=== PATIENT | female | born 1960 | race Two or more races ===

== ENCOUNTER 2024-10-05 07:05 | Inpatient (IN) | payer MEDICAID ==
[2024-10-05] VITALS (15 sets, daily range): BP systolic 100–115; BP diastolic 63–89; PULSE 77–106; RESP 12–20; TEMP 97.8–98.4; O2SAT 80–98
[~2024-10-05] VITALS: Ht 165.1 cm; Wt 101.3 kg
[~2024-10-05 07:05] MED LIST: ACET1CAP14 PO; ACYC400T16 PO; ASPITAB37 PO; ATOR40TA52 PO; DICL1.3P TOP; ESTR1TAB5 PO; FAMO20TA10 PO; GABA-339 PO; GLYC5INJ IJ; HYDR-3682 PO; LAMO200T2 PO; LORA-622 PO; METO-159 PO; MOME1AER3 INH; MONT-8 PO; NAPR220C PO; OXYB5SYP4 PO; PANT40TA2 PO; PRAM0.373 PO; PROG100C23 PO; SEMA2.4I SC; TRAZ-228 PO; VENL225T20 PO; [UNRECOGNIZED DRUG - CODE] SC
[2024-10-05] MEDS: CELECOXIB 100 MG CAP ONE (07:36)
[2024-10-05] MEDS: ACETAMINOPHEN IV 100 ML IV ONE (07:36)
[2024-10-05] MEDS: PREGABALIN CAPSULE 75 MG CAP ONE (08:07)
[2024-10-05] MEDS: ACETAMINOPHEN IV 1000 MG/100ML (10MG/ML) IV ONE (09:25)
[2024-10-05] MEDS: PREGABALIN CAPSULE 75 MG CAP PO ONE (09:25)
[2024-10-05] MEDS: CELECOXIB 100 MG CAP PO ONE (09:25)
[2024-10-05] MEDS: TRANEXAMIC ACID 20 ML ONE (09:45)
[2024-10-05] MEDS ORDERED: fentaNYL CITRATE 100 MCG/2 ML VL ONE (09:45)
[2024-10-05] MEDS: CEFEPIME 1GM/50ML 50 ML IV ONE (09:45)
[2024-10-05] MEDS: ceFAZolin 2 GM/D5W50ml 50 ML IV ONE (09:45)
[2024-10-05] MEDS ORDERED: ONDANSETRON HCL 4 MG/2 ML VIAL ONE (09:46)
[2024-10-05] MEDS ORDERED: MIDAZOLAM HCL 2MG/2ML 2ml VIAL (1mg/ml) ONE (09:46)
[2024-10-05] MEDS ORDERED: METOCLOPRAMIDE HCL 5MG/ml INJ 2ml VIAL ONE (09:46)
[2024-10-05] MEDS: BUPIVACAINE 0.25% INJ 50ML VIAL ONE ×2 (09:47→10:11)
[2024-10-05] MEDS ORDERED: PROPOFOL 10 MG/ML 20 ML IV ONE (09:48)
[2024-10-05] MEDS ORDERED: PROGESTERONE PO SCH (10:00)
[2024-10-05] MEDS ORDERED: PATIENTS OWN MEDICATION (Metoprolol Tartrate 1 TAB) PO SCH (10:00)
[2024-10-05] MEDS ORDERED: PATIENTS OWN MEDICATION (Lamotrigine (Lamictal) 1 TAB) PO SCH (10:00)
[2024-10-05] MEDS ORDERED: PATIENTS OWN MEDICATION (Hydroxyzine Hcl 1 TAB) PO SCH (10:00)
[2024-10-05] MEDS ORDERED: PRAMIPEXOLE DIHYDROCHLORIDE 0.5 MG PO SCH (10:00)
[2024-10-05] MEDS ORDERED: NITROGLYCERIN 0.4 MG SL TAB SL PRN (10:00)
[2024-10-05] MEDS ORDERED: FAMOTIDINE 20 MG TAB PO SCH (10:00)
[2024-10-05] MEDS ORDERED: PANTOPRAZOLE 40 MG TAB PO SCH (10:00)
[2024-10-05] MEDS ORDERED: VENLAFAXINE HCL 225 MG PO SCH (10:00)
[2024-10-05] MEDS ORDERED: ONDANSETRON HCL 4 MG/2 ML VIAL IV PRN (10:00)
[2024-10-05] MEDS ORDERED: CEFEPIME 1GM/50ML 50 ML IV SCH (10:00)
[2024-10-05] MEDS ORDERED: Mometasone Furoate-Formoterol (Dulera) IN SCH (10:00)
[2024-10-05] MEDS ORDERED: MORPHINE SULFATE INJ 2 MG/ml SYRG IV PRN (10:00)
[2024-10-05] MEDS ORDERED: PATIENTS OWN MEDICATION (Atorvastatin Calcium 1 TAB) PO SCH (10:00)
[2024-10-05] MEDS ORDERED: PATIENTS OWN MEDICATION (Gabapentin 1 TAB) PO SCH (10:00)
[2024-10-05] MEDS ORDERED: DICLOFENAC EPOLAMINE TOP SCH (10:00)
[2024-10-05] MEDS ORDERED: ceFAZolin 1GM/50ML 50 ML IV SCH (10:00)
[2024-10-05] MEDS ORDERED: OXYBUTYNIN CHLORIDE 5 MG/5 ML PO SCH (10:00)
--- NOTE | 2024-10-05 10:00 | DVHOP2 ---
Operative Report - 2 Report Details Date: 10/05/24 Preop Diagnosis: Right knee osteoarthritis Postop Diagnosis: Right knee osteoarthritis Surgeon: Sheldon Helton MD Second Grade Teacher: Alex JESUS Anesthesiologist: Navneet HOPKINS Anesthesia: General, Regional Implant: [employer] Size 5 porous CR size 4 tibia size 9 UHMWE 29 mm patella Consent: The patient was informed of the risks and benefits of the procedure. These inclu de but are not limited to complications of anesthesia, postoperative infection, incomplete relief of symptoms, recurrence of symptoms, damage to blood vessels, nerves and tendons, deep venous thrombosis, pulmonary embolism and possible need for repeat surgery in the future. Estimated Blood Loss: 50 cc Name of Procedure Performed Right total knee arthroplasty using computer navigation Procedure Details Procedure Details: FINDINGS: Extensive degenerative disease with grade IV changes INDICATION: This patient has failed non-operative treatments for knee arthritis and is now indicated for a total knee replacement. Preoperatively in the waiting area as well as in the office, I had a long discussion with the patient regarding the plan, the expected outcome, the risks, benefits, and alternatives of surgery. The risks include, but are not limited to, infection (which may require future surgery and removal of implants) , bleeding (which may require a transfusion), damage to nerves, arteries, veins, tendons, muscles and other adjacent structures. Also discussed the possibilities of intraoperative fractures, implant loosening, heterotopic bone formation, and revision for variety of reasons, and medical complications etc. This was discussed at length and consent has been obtained. DESCRIPTION OF PROCEDURE: In the preoperative holding area, the consent was reviewed and the appropriate extremity was verified by the patient and marked wi th my initials. The patient was then transferred to the operating theatre. Appropriate anesthesia was induced. All bony prominences were well padded. A time out was performed verifying the side and site of surgery according to standard protocol. Preoperative antibiotics were given 10 minutes prior to tourniquet inflation. Tranexamic acid was given. A well padded thigh tourniquet was applied. The extremity was then prepped and draped in the usual sterile fashion. The extremity was exsanguinated and the tourniquet was inflated. We then made a mid-line incision, which we continued to the underlying capsular tissue. We performed a medial parapatellar arthrotomy. We periosteally exposed the proximal tibia, excised the anterior fat pad and synovium from the distal aspect of the femur. We then subluxed the patella and brought the knee up into flexion. The lateral meniscus, ACL, and PCL were released. We used the appropriate guide with attached computer navigation to secure the distal femoral cutting block to the femur with pins and completed the distal femoral cut in 0 degrees to the mechanical axis with an oscillating saw. We removed the distal femoral cutting block and turned our attention to the tibia. We used the extramedullary tibial alignment guide with computer navigation to secure the proximal tibial cutting block to the tibia with pins, setting it for a 2 mm cut from the more involved side, and completed the proximal tibial cut. We then used the spacer block and alignment laura to check the varus-valgus angle of our cuts and the extension gap. The knee was then balanced in extension to varus/valgus stress. We marked our femoral anatomy, including Garza's line and the epicondylar axis. Using that as a rotational guide, we used the sizing guide to size our femur properly, using a stylus to ensure there would be no notching. We then used the AP cutting guide to make our anterior and posterior cuts and chamfer cuts with an oscillating saw. We again checked the flexion and extension gaps and coronal balancing. Next, we sized our tibia and secured a baseplate with appropriate rotation with pins. We placed a trial femur in position and completed preparation of the notch with reamers and box osteotome and placed a trial notch in position. We used trials to choose our liner size and then placed the liner in place and reduced the knee. We used an oscillating saw to resurfac e the patella, and used a guide to choose the button size and completed patella preparation with the drill. We then placed a trial button in place. At this point, we checked our seven parameters: 1) Limb alignment 2) Extension 3) Flexion against gravity 4) Flexion stability 5) Varus-valgus balancing 6) Component rotation 7) Patella tracking We were satisfied with these and removed all trials with the exception of the baseplate. We completed preparation of the tibia with the appropriate reamer and keel impactor and then removed the baseplate. We placed a bone plug in the distal femur and then irrigated and dried all bony surfaces and injected our pain cocktail. impacted our tibial, femoral and patellar components into position. We impacted our liner and reduced the knee and held it with axial loading. We released the tourniquet and achieved hemostasis where necessary. A dilute betadine solution (17.5mL in 500mL saline) was used to wash the joint and left to sit for 3 minutes. This was then irrigated out with copious amounts of pulse lavage. We sprinkled 1g vancomycin powder below the fascia and 1g above the fasc ia. We copiously irrigated the knee. We re-checked our seven parameters. We closed our capsular incision with a PDS style suture. We irrigated further. We closed the subcutaneous tissue with Vicryl suture and re-approximated the skin with venecia. We verified all lower extremity compartments were soft and compressible and that we had intact distal pulses. We wrapped the extremity in sterile Webril and bassem bandage. The patient was transferred to the recovery room in stable condition. Condition Good Disposition Still a Patient SHELDON HELTON MD Oct 05, 2024 10:00
[2024-10-05] MEDS: KETOROLAC TROMETH 30 MG/ML 1ML VIAL ONE (10:11)
[2024-10-05] MEDS: MORPHINE SULF PF 5 MG/10 ML VIAL ONE (10:11)
[2024-10-05] MEDS: VANCOMYCIN HCL 1000 MG VL ONE (10:11)
[2024-10-05] MEDS ORDERED: NALOXONE HCL 0.4 MG/ML VIAL IV PRN (12:00)
[2024-10-05] MEDS ORDERED: diphenhdrAMINE HCL 50 MG/1 ML VL IV PRN (12:00)
[2024-10-05] MEDS ORDERED: HYDROmorphone HCL 2 MG/ML VL/or syr IV PRN (12:00)
[2024-10-05] MEDS: MIDAZOLAM HCL 2MG/2ML 2ml VIAL (1mg/ml) ONE ×2 (12:06→16:11)
[2024-10-05] MEDS: MIDAZOLAM HCL 2MG/2ML 2ml VIAL (1mg/ml) IV PRN ×2 (12:06→16:15)
--- NOTE | 2024-10-05 12:56 | DVHHP2 ---
Review of Systems Allergies: Coded Allergies: Hydrocodone (Unverified Allergy, Unknown, SOB, 10/01/24) Sulfa Antibiotics (Unverified Adverse Reaction, Intermediate, lip swelling , 10/01/24) Norfloxacin (Unverified Adverse Reaction, Unknown, unknown, 10/01/24) Medications Current Medications Medications Dose Ordered Sig/Mercy Route Start Time Stop Time Status Last Admin Dose Admin Famotidine 20 mg DAILY PO 10/05/24 10:00 Loratadine 10 mg DAILY PO 10/05/24 10:00 Montelukast Sodium 10 mg DAILY PO 10/05/24 10:00 Pantoprazole Sodium 40 mg DAILY PO 10/05/24 10:00 Patient Own Medication 1 tab DAILY PO 10/05/24 10:00 UNV Patient Own Medication 1 patch BID TOP 10/05/24 10:00 Patient Own Medication 1 tab BID PO 10/05/24 10:00 UNV Patient Own Medication 1 tab BID PO 10/05/24 10:00 UNV Patient Own Medication 1 tab BID PO 10/05/24 10:00 UNV Patient Own Medication 1 tab BID PO 10/05/24 10:00 UNV Patient Own Medication 2 puff BID IN 10/05/24 10:00 Patient Own Medication 10 mg DAILY PO 10/05/24 10:00 Patient Own Medication 0.5 mg DAILY PO 10/05/24 10:00 UNV Patient Own Medication 2.5 mg DAILY PO 10/05/24 10:00 Patient Own Medication 100 mg PRN PO 10/05/24 10:00 UNV Patient Own Medication 1 tab DAILY PO 10/05/24 10:00 Cefepime HCl 50 ml @ 12.5 mls/hr DAILY IV 10/05/24 10:00 Lactated Ringer's 1,000 ml @ 100 mls/hr Q10H IV 10/05/24 10:00 Sodium Chloride 10 ml Q8HR IV 10/05/24 14:00 Cefazolin Sodium 50 ml @ 50 mls/hr Q6H IV 10/05/24 10:00 10/05/24 22:59 Oxycodone/ Acetaminophen 1 tab Q4HP PRN PO 10/05/24 10:00 Hydromorphone HCl 1 mg Q2HP PRN IV 10/05/24 10:00 Hold Ondansetron HCl 4 mg Q6HP PRN IV 10/05/24 10:00 Docusate Sodium 100 mg Q12HR PO 10/05/24 10:00 Nitroglycerin 0.4 mg Q5MINP PRN SL 10/05/24 10:00 Morphine Sulfate 2 mg Q30M PRN IV 10/05/24 10:00 Hold Aspirin 81 mg BID PO 10/05/24 10:00 Atorvastatin Calcium 40 mg HS PO 10/05/24 22:00 Gabapentin 600 mg BID PO 10/05/24 22:00 Hydroxyzine Pamoate 25 mg BID PO 10/05/24 22:00 Lamotrigine 200 mg BID PO 10/05/24 22:00 Metoprolol Tartrate 100 mg BID PO 10/05/24 22:00 Pramipexole Dihydrochloride 0.5 mg DAILY PO 10/06/24 10:00 Trazodone HCl 100 mg QPM PRN PO 10/05/24 11:30 Diphenhydramine HCl 25 mg Q4HP PRN IV 10/05/24 12:00 Ondansetron HCl 4 mg Q4HP PRN IV 10/05/24 12:00 Cyclobenzaprine HCl 5 mg TID PO 10/05/24 14:00 Midazolam HCl 1 mg [id number] PRN IV 10/05/24 12:00 10/05/24 14:00 UNV Exam Vital Signs Vital Signs Date Time Temp Pulse Resp B/P (MAP) Pulse Ox O2 Delivery O2 Flow Rate FiO2 10/05/24 07:26 97.4 84 20 126/72 (90) 94 97.4 Labs/Xrays Labs Test 10/05/24 11:50 Range/Units POC Glucose 101 70-106 mg/dl SEPSIS Sepsis Screen Physician Orders Famotidine Tablet (Pepcid Tablet) (10/05/24 10:00) Loratadine Tablet (Claritin Tablet) (10/05/24 10:00) Montelukast Tablet (Singulair Tablet) (10/05/24 10:00) Pantoprazole Tablet (Protonix Tablet) (10/05/24 10:00) (Nf) Diclofenac Epolamine (Flector) (10/05/24 10:00) (Nf) Mometasone Furoate-Formoterol (Dule (10/05/24 10:00) (Nf) Oxybutynin Chloride (10/05/24 10:00) (Nf) Progesterone Micronized (Progestero (10/05/24 10:00) (Nf) Venlafaxine Hcl (Venlafaxine Hcl Er (10/05/24 10:00) Cefepime 1gm/ 50ml (Maxipime 1gm/50ml) (10/05/24 10:00) Patient Condition Stable (10/05/24 09:55) R Knee 3v Xray (10/05/24 11:30) Hemoglobin & Hematocrit (10/06/24 07:00) Hemoglobin & Hematocrit (10/07/24 07:00) Hemoglobin & Hematocrit (10/08/24 07:00) Change Dressing (10/05/24 09:55) Vital Signs .PER UNIT PROTOCOL (10/05/24:55) Weight-Bearing Restrictions (10/05/24 09:55) Lactated Ringer's (10/05/24 10:00) Sodium Chloride Lock (Saline Lock Ns) (10/05/24 14:00) Cefazolin 1gm/50ml (Ancef) (10/05/24 10:00) Oxycodone W/ Acet 5/325mg Tab (Percocet (10/05/24 10:00) Hydromorphone Injection (Dilaudid Inject (10/05/24 10:00) Ondansetron Hcl (Zofran) (10/05/24 10:00) Docusate Sodium Capsule (Colace Capsule) (10/05/24 10:00) 2 Gm Sodium Diet (10/05/24 Lunch) CPM (10/05/24 09:55) Pt Request For Service (10/05/24 09:55) Comprehensive Metabolic Panel (10/06/24 04:00) Call/Page Hospitalist/Atten Fo (10/05/24 09:55) Cpm Machine To Operative Leg (10/05/24 09:55) Incentive Spirometry (10/05/24 09:55) Nitroglycerin Sublingual (Ntrostat Subli (10/05/24 10:00) Morphine Sulfate Injection (10/05/24 10:00) Stat Ekg For Chest Pain (10/05/24 09:55) Notify Of Changes From Base (10/05/24 09:55) Fingernail Technician For 24 Hours (10/05/24 09:55) Emergency Dysrhythmia Protocol (10/05/24 09:55) Rhythm Strips Once Every Shift (10/05/24 09:55) Oxygen By Nasal Cannula (10/05/24 09:55) Apply Ice To Affected Area (10/05/24 09:55) * Hospitalist Consult (10/05/24 ) Aspirin Tablet (10/05/24 10:00) Atorvastatin (Lipitor) (10/05/24 22:00) Gabapentin Capsule (Neurontin Capsule) (10/05/24 22:00) Hydroxyzine Oral (Vistaril Oral) (10/05/24 22:00) Lamotrigine Tablet (Lamictal Tablet) (10/05/24 22:00) Metoprolol Tartrate Tablet (Lopressor Ta (10/05/24 22:00) Pramipexole Tablet (Mirapex Tablet) (10/06/24 10:00) Trazodone Hcl (Desyrel) (10/05/24 11:30) Pain Medication As Ordered (10/05/24 11:47) Diphenhdramine Injection (Benadryl Injec (10/05/24 12:00) Ondansetron Hcl (Zofran) (10/05/24 12:00) Received Epi/Spinal Morphine (10/05/24 11:47) Cyclobenzaprine Tablet (Flexeril Tablet) (10/05/24 14:00) * Asset Card Clerk Consult (10/05/24 ) Admit (10/05/24 12:30) Communication Order (10/05/24 12:31) Midazolam Injection (Versed Injection) (10/05/24 12:00) Vital Signs Date Time Temp Pulse Resp B/P (MAP) Pulse Ox O2 Delivery O2 Flow Rate FiO2 10/05/24 07:26 97.4 84 20 126/72 90 94 97.4 Medications Medications Dose Ordered Sig/Mercy Route Start Time Stop Time Status Last Admin Dose Admin Acetaminophen 1,000 mg ONCE ONCE IV 10/05/24 07:30 10/05/24 08:22 DC 10/05/24 09:25 1,000 MG Bupivacaine HCl 50 ml STK-MED ONCE .ROUTE 10/05/24 09:37 10/05/24 09:34 DC 10/05/24 10:11 40 ML Cefazolin Sodium/ Dextrose 50 ml @ ud STK-MED ONCE IV 10/05/24 09:30 10/05/24 09:27 DC 10/05/24 09:45 Cefepime HCl 50 ml @ ud STK-MED ONCE IV 10/05/24 09:37 10/05/24 09:34 DC 10/05/24 09:45 Celecoxib 400 mg ONCE ONCE PO 10/05/24 07:30 10/05/24 08:22 DC 10/05/24 09:25 400 MG Ketorolac Tromethamine 30 mg STK-MED ONCE .ROUTE 10/05/24 09:43 10/05/24 09:40 DC 10/05/24 10:11 30 MG Morphine Sulfate 5 mg STK-MED ONCE .ROUTE 10/05/24 09:45 10/05/24 09:42 DC 10/05/24 10:11 5 MG Pregabalin 300 mg ONCE ONCE PO 10/05/24 07:30 10/05/24 08:22 DC 10/05/24 09:25 300 MG Tranexamic Acid 20 ml @ ud STK-MED ONCE .ROUTE 10/05/24 09:37 10/05/24 09:34 DC 10/05/24 09:45 Vancomycin HCl 2,000 mg STK-MED ONCE .ROUTE 10/05/24 09:36 10/05/24 09:33 DC 10/05/24 10:11 2,000 MG Assessment/Plan Assessment/Plan see dictated note Plan discussed with: Patient Date of Service: Oct 05, 2024 Billing Provider: HIREN SALDAÑA MD Common Visit Codes: [id number] INP/OBS CARE (HIGH) HIREN SALDAÑA MD Oct 05, 2024 12:56
[2024-10-05] MEDS ORDERED: DEXTROSE (50%) 50ML SYRG IV PRN (13:00)
[2024-10-05] MEDS: LACTATED RINGER'S 1,000 ML IV SCH (13:01)
--- NOTE | 2024-10-05 13:13 | DVHHP ---
HISTORY OF PRESENT ILLNESS: The patient is a 64-year-old lady who was admitted after she underwent surgery on the right knee for DJD of the knee. The patient at this time complains of restless legs with significant jerking of lower extremities. No chest pain, no shortness of breath, no nausea or vomiting. REVIEW OF SYSTEMS: Review of rest of the systems is currently negative. PAST MEDICAL HISTORY: Significant for restless leg syndrome, asthma/COPD, depression, and hypertension. MEDICATIONS: Include metoprolol, Dulera, Singulair, oxybutynin, Protonix, pramipexole, Lipitor, gabapentin, and Naprosyn. ALLERGIES: TO DIAZEPAM, HYDROCODONE, NORFLOXACIN, AND SULFA. SOCIAL HISTORY: Denies smoking or alcohol. Lives alone. FAMILY HISTORY: Negative. PHYSICAL EXAMINATION: GENERAL: The patient is awake and alert. VITAL SIGNS: Temperature of 97.4, pulse 84 per minute, blood pressure 126/72. SHEENT: Unremarkable. NECK: There is no JVD, no pedal edema. LUNGS: Equal bilaterally. No added sounds. CARDIOVASCULAR: S1, S2 is regular. There are no murmurs. ABDOMEN: Soft. There is no organomegaly. NEUROLOGIC: The patient has jerking movements of lower extremities. MUSCULOSKELETAL: The right knee is currently in a dressing. ASSESSMENT AND PLAN: * Restless legs syndrome for which the patient will continue on her home medications. * Obesity. * Hypertension. * Asthma. * Depression. * Hyperlipidemia. * Diabetes Mellitus. * Status post right knee surgery for DJD of the knee for which she will receive physical therapy and pain medications. MD ADRIÁN Noe/MONICA TID: [id number] RECEIPT: [id number]
[2024-10-05] MEDS: ONDANSETRON HCL 4 MG/2 ML VIAL IV PRN (13:18)
[2024-10-05] MEDS: DOCUSATE SOD 100 MG CAP PO SCH (13:29)
[2024-10-05] MEDS: CYCLOBENZAPRINE HCL 10 MG TAB PO SCH (13:29)
[2024-10-05] MEDS: LORATADINE 10 MG TAB PO SCH (13:30)
[2024-10-05] MEDS: MONTELUKAST SODIUM 10 MG TAB PO SCH (13:30)
[2024-10-05] MEDS: PANTOPRAZOLE 40 MG TAB PO ONE (13:30)
[2024-10-05] MEDS: SODIUM CHLOR 0.9% PF (SALINE LOCK) 10ML VIAL/SYR IV SCH (14:20)
--- NOTE | 2024-10-05 14:22 | DVH ---
EXAM: XY R KNEE 3V XRAY CLINICAL INDICATION: S/P SURGERY TECHNIQUE: XY R KNEE 3V XRAY Comparison: None FINDINGS/IMPRESSION: Right total knee arthroplasty. Anatomic alignment. Expected postsurgical changes.
[2024-10-05] MEDS: ceFAZolin 1GM/50ML 50 ML IV SCH (15:30)
[2024-10-05] MEDS ORDERED: ALBUTEROL SULF 2.5 MG/0.5ML(0.5%) NEB SOLN NEB PRN (16:30)
[2024-10-05] MEDS ORDERED: IPRATROPIUM BROM 0.5 MG/2.5ML INH SOL NEB PRN ×2 (16:30→16:45)
[2024-10-05] MEDS: InsuLIN REG 1unit/0.01ml Soln (100units/ml) SC SCH (17:00)
[2024-10-05] MEDS: ACCU-CHEK COMFORT CURVE STRIP VI SCH (17:00)
[2024-10-05] MEDS: FAMOTIDINE 20 MG TAB PO SCH (18:00)
[2024-10-05] MEDS: LORazepam 0.5 MG TAB PO PRN (21:33)
[2024-10-05] MEDS: METOPROLOL TARTRATE 25 MG TAB PO SCH (22:00)
[2024-10-05] MEDS ORDERED: METOPROLOL TARTRATE 50 MG TAB PO SCH (22:00)
[2024-10-05] MEDS: hydrOXYzine 25 MG TAB or CAP PO SCH (22:00)
[2024-10-05] MEDS: ATORVASTATIN 20 MG TAB PO SCH (22:49)
[2024-10-05] MEDS: GABAPENTIN 300 MG CAP PO SCH (22:49)
[2024-10-05] MEDS: OXYBUTYNIN CHL 5 MG TAB PO SCH (22:49)
[2024-10-05] MEDS: lamoTRIgine 100 MG TAB PO SCH (22:50)
[2024-10-05] MEDS: VENLAFAXINE HCL 37.5mg XR cap PO SCH (22:50)
[2024-10-06] VITALS (19 sets, daily range): BP systolic 99–132; BP diastolic 53–79; PULSE 65–87; RESP 16–21; TEMP 97.5–98.4; O2SAT 94–100
[2024-10-06] MEDS: OXYCODONE W/ ACETAMINOPHEN 5/325MG TABLET PO PRN (01:00)
[2024-10-06 06:30] LABS: Hematocrit 34.6 % (36.0-46.0); Hemoglobin 11.8 g/dL (12.2-16.2); Mean Corpuscular Hemoglobin 30.6 pg (28.0-32.0); Mean Corpuscular Volume 89.9 fL (80.0-100.0); Nucleated Red Blood Cells % 0.0 %
[2024-10-06 06:39] LABS: Alanine Aminotransferase 10 U/L (7-40); Albumin 4.0 g/dL (3.2-4.8); Alkaline Phosphatase 100 U/L (46-116); Anion Gap 9 (5-15); BUN/Creatinine Ratio 16.0 (10.0-20.0); Blood Urea Nitrogen 15 mg/dL (9-23); Calcium 9.3 mg/dL (8.7-10.4); Carbon Dioxide 27 mmol/L (20-31); Chloride 104 mmol/L (98-107); Potassium 4.5 mmol/L (3.5-5.1); Sodium 140 mmol/L (136-145); Total Protein 5.8 g/dL (5.7-8.2)
[2024-10-06 06:40] LABS: Bilirubin, Total 0.4 mg/dL (0.2-1.0)
[2024-10-06 06:43] LABS: Glucose 138 mg/dL (74-106)
--- NOTE | 2024-10-06 07:56 | DVHPN2 ---
Progress Note Date Seen: Oct 06, 2024 Medical Necessity Reason Pt with a Central, PICC or Fol: No Subjective Patient reports: No new complaints Objective vital signs Vital Sign Date Time Temp Pulse Resp B/P (MAP) Pulse Ox O2 Delivery O2 Flow Rate FiO2 10/06/24 06:44 78 18 98 10/06/24 05:00 97.8 109/69 (82) 97.8 10/05/24 20:00 Nasal Cannula* 4 36 Total Intake and Output 10/05/24 10/05/24 10/06/24 15:00 23:00 07:00 Intake Total 120 ml 250 ml Balance 120 ml 250 ml medications Current Medications Medications Dose Ordered Sig/Mercy Route Start Time Stop Time Status Last Admin Dose Admin Loratadine 10 mg DAILY PO 10/05/24 10:00 10/05/24 13:30 10 MG Montelukast Sodium 10 mg DAILY PO 10/05/24 10:00 10/05/24 13:30 10 MG Patient Own Medication 1 tab DAILY PO 10/05/24 10:00 UNV Patient Own Medication 1 tab BID PO 10/05/24 10:00 UNV Patient Own Medication 1 tab BID PO 10/05/24 10:00 UNV Patient Own Medication 1 tab BID PO 10/05/24 10:00 UNV Patient Own Medication 1 tab BID PO 10/05/24 10:00 UNV Patient Own Medication 0.5 mg DAILY PO 10/05/24 10:00 UNV Patient Own Medication 100 mg PRN PO 10/05/24 10:00 UNV Lactated Ringer's 1,000 ml @ 100 mls/hr Q10H IV 10/05/24 10:00 10/05/24 13:01 100 MLS/HR Sodium Chloride 10 ml Q8HR IV 10/05/24 14:00 10/06/24 06:41 10 ML Oxycodone/ Acetaminophen 1 tab Q4HP PRN PO 10/05/24 10:00 10/06/24 06:32 1 TAB Hydromorphone HCl 1 mg Q2HP PRN IV 10/05/24 10:00 Docusate Sodium 100 mg Q12HR PO 10/05/24 10:00 10/05/24 22:48 100 MG Nitroglycerin 0.4 mg Q5MINP PRN SL 10/05/24 10:00 Morphine Sulfate 2 mg Q30M PRN IV 10/05/24 10:00 Aspirin 81 mg BID PO 10/05/24 10:00 10/05/24 22:49 81 MG Atorvastatin Calcium 40 mg HS PO 10/05/24 22:00 10/05/24 22:49 40 MG Gabapentin 600 mg BID PO 10/05/24 22:00 10/05/24 22:49 600 MG Hydroxyzine Pamoate 25 mg BID PO 10/05/24 22:00 Lamotrigine 200 mg BID PO 10/05/24 22:00 10/05/24 22:50 200 MG Pramipexole Dihydrochloride 0.5 mg DAILY PO 10/06/24 10:00 Trazodone HCl 100 mg QPM PRN PO 10/05/24 11:30 Diphenhydramine HCl 25 mg Q4HP PRN IV 10/05/24 12:00 Ondansetron HCl 4 mg Q4HP PRN IV 10/05/24 12:00 10/05/24 21:17 4 MG Cyclobenzaprine HCl 5 mg TID PO 10/05/24 14:00 10/06/24 06:33 5 MG Venlafaxine HCl 37.5 mg BID PO 10/05/24 22:00 10/05/24 22:50 37.5 MG Oxybutynin Chloride 5 mg Q12HR PO 10/05/24 22:00 10/05/24 22:49 5 MG Metoprolol Tartrate 25 mg BID PO 10/05/24 22:00 Diagnostic Test (Pha) 1 strip ACHS 10/05/24 17:00 10/06/24 06:41 1 STRIP Insulin Human Regular ACHS SC 10/05/24 17:00 10/06/24 06:44 2 UNITS Dextrose 50 ml UD PRN IV 10/05/24 13:00 Cefepime HCl 50 ml @ 12.5 mls/hr DAILY IV 10/06/24 10:00 Famotidine 20 mg QPM PO 10/05/24 18:00 10/05/24 18:00 20 MG Lorazepam 1 mg Q6HP PRN PO 10/05/24 16:30 10/05/24 21:33 1 MG Albuterol 2.5 mg Q6HP PRN NEB 10/05/24 16:30 Ipratropium [place] 0.5 mg Q6HPRN PRN NEB 10/05/24 16:45 Examination: GENERAL:Normal, MSK:Abnormal laboratory and microbiology Laboratory Tests 10/06/24 05:38 Test 10/06/24 05:38 Range/Units Serum Glucose 138 H 74-106 mg/dL Problem List/Assessment/Plan Problem List/Assessment/Plan 64 year old female who is s/p right TKA POD 1 1. Pain control 2. WBAT RLE 3. Physical therapy 4. CPM 5. patient has follow up scheduled in 2 weeks on 10/22/2024 at 10:00 6. Patient is clear for transfer to SN[facility]) once she has successfully ambulated with the following discharge recommendations Total Knee Arthroplasty Discharge Instructions Wound Care 1. You will likely have a gel-type dressing over your wound, you may keep this on for 7-14 days after leaving the hospital until your first post-op visit, unless it becomes soiled or your skin becomes irritated. If a wound vac dressing is placed on your knee this is to be left in place for one week and will be changed as needed. After your remove the dressing or wound vac, the home health nurse may place clean dry dressing over your wound. Keep wound covered, clean and dry for two weeks. 2. Char will be removed during your initial post-op visit. If you have concerns about our wound, please call the office immediately. If nervous about staple removal can take pain pill one hour prior to appointment. 3. If there is drainage from your wound, change the dressing daily until it stops. If drainage lasts more than 10 days, call our office. 4. Low grade (up to 100 degrees) fever is common for the first week after surgery. You should take your temperature daily. If you have fevers of 101 or more, please call the office. Medication Management 1. You will be discharged with pain medication, a blood thinner (unless you were previously on a blood thinner prior to surgery) and stool softener. Please follow the instructions regarding these medications as provided by your nurse at the hospital upon discharge. 2. Blood clots in the leg are a known complication of surgery. It is very important that you take the medication to protect against clots. Depending on what you are discharged on typically it is Lovenox 40mg daily for 2 weeks or Aspirin 81mg twice daily for 4 weeks. After you finish this, you should then take baby Aspirin (81mg) once daily for 2 weeks. 3. You should restart all of your prescription medications once discharged from the hospital/surgery center unless specifically instructed otherwise. 4. Herbal supplements may be restarted 2 weeks after surgery. 5. If you have been given Coumadin as a blood thinner, please follow up with your manager flight during the first two weeks after surgery to review medications and overall medical well-being. 6. Please note that narcotic pain medication may cause constipation. Please remember to take stool softeners (Colace) when using narcotics to help reduce the change of constipation. You should not use alcohol together with narcotic medication. Activity 1. CPM as ordered, goal is for 6 hours every day for the first 21 days of your recovery. Can break it up in to increments of 2-3 hours at a time. Most hospitals will start at 45 degrees of flexion, and increase by 5 degrees daily until the machine has been maxed out. The goal is to be at 90 degrees by first postop visit in 2 weeks. 2. No pool, jacuzzi, beach, orr or bath for 6 weeks. Once all scabbing has fallen off patient can begin soaking and submerging knee under water for 15- minute periods at a time. 3. Physical therapy is critical in the first 2 weeks. If having issues with scheduling please inform office. 4. No running or jumping for 6 weeks. 5. Can walk and bear as much weight on the surgical leg as tolerated. No restrictions in regards to walking or standing. [facility] [place] Instructions 1. Driving is not permitted within the first 2 weeks. 2. Your first postoperative visit will take place 2 weeks after discharge. Please call the office once you are home from the hospital to arrange this appointment. 3. Antibiotic preventative treatment is required before dental or other invasive procedures. Please ask your surgeon about this at your first postoperative visit. If you experience chest pain, shortness of breath or severe painful calf swelling, go to the nearest emergency room to be evaluated. Please call our office once your situation is stabilized. Plan discussed with: Patient Date of Service: Oct 06, 2024 Billing Provider: KINJAL HELTON MD Common Visit Codes: NOT BILLABLE NAIMA MARTINEZ NP Oct 06, 2024 07:56
--- NOTE | 2024-10-06 10:26 | DVHPN2 ---
Progress Note Date Seen: Oct 06, 2024 Medical Necessity Reason Pt with a Central, PICC or Fol: No Subjective Patient reports: No new complaints Review of Systems: HEENT:Normal, CVS:Normal, RESPIRATORY:Normal, GI:Normal, :Normal, MSK:Normal, NEURO:Normal Objective vital signs Vital Sign Date Time Temp Pulse Resp B/P (MAP) Pulse Ox O2 Delivery O2 Flow Rate FiO2 10/06/24 09:00 97.5 74 17 100/53 (69) 98 97.5 10/06/24 08:00 Nasal Cannula* 4 36 Total Intake and Output 10/05/24 10/05/24 10/06/24 15:00 23:00 07:00 Intake Total 120 ml 250 ml Balance 120 ml 250 ml medications Current Medications Medications Dose Ordered Sig/Mercy Route Start Time Stop Time Status Last Admin Dose Admin Loratadine 10 mg DAILY PO 10/05/24 10:00 10/05/24 13:30 10 MG Montelukast Sodium 10 mg DAILY PO 10/05/24 10:00 10/05/24 13:30 10 MG Patient Own Medication 1 tab DAILY PO 10/05/24 10:00 UNV Patient Own Medication 1 tab BID PO 10/05/24 10:00 UNV Patient Own Medication 1 tab BID PO 10/05/24 10:00 UNV Patient Own Medication 1 tab BID PO 10/05/24 10:00 UNV Patient Own Medication 1 tab BID PO 10/05/24 10:00 UNV Patient Own Medication 0.5 mg DAILY PO 10/05/24 10:00 UNV Patient Own Medication 100 mg PRN PO 10/05/24 10:00 UNV Sodium Chloride 10 ml Q8HR IV 10/05/24 14:00 10/06/24 06:41 10 ML Oxycodone/ Acetaminophen 1 tab Q4HP PRN PO 10/05/24 10:00 10/06/24 06:32 1 TAB Hydromorphone HCl 1 mg Q2HP PRN IV 10/05/24 10:00 Docusate Sodium 100 mg Q12HR PO 10/05/24 10:00 10/05/24 22:48 100 MG Nitroglycerin 0.4 mg Q5MINP PRN SL 10/05/24 10:00 Morphine Sulfate 2 mg Q30M PRN IV 10/05/24 10:00 Aspirin 81 mg BID PO 10/05/24 10:00 10/05/24 22:49 81 MG Atorvastatin Calcium 40 mg HS PO 10/05/24 22:00 10/05/24 22:49 40 MG Gabapentin 600 mg BID PO 10/05/24 22:00 10/05/24 22:49 600 MG Hydroxyzine Pamoate 25 mg BID PO 10/05/24 22:00 Lamotrigine 200 mg BID PO 10/05/24 22:00 10/05/24 22:50 200 MG Pramipexole Dihydrochloride 0.5 mg DAILY PO 10/06/24 10:00 Trazodone HCl 100 mg QPM PRN PO 10/05/24 11:30 Diphenhydramine HCl 25 mg Q4HP PRN IV 10/05/24 12:00 Ondansetron HCl 4 mg Q4HP PRN IV 10/05/24 12:00 10/05/24 21:17 4 MG Cyclobenzaprine HCl 5 mg TID PO 10/05/24 14:00 10/06/24 06:33 5 MG Venlafaxine HCl 37.5 mg BID PO 10/05/24 22:00 10/05/24 22:50 37.5 MG Oxybutynin Chloride 5 mg Q12HR PO 10/05/24 22:00 10/05/24 22:49 5 MG Metoprolol Tartrate 25 mg BID PO 10/05/24 22:00 Diagnostic Test (Pha) 1 strip ACHS 10/05/24 17:00 10/06/24 06:41 1 STRIP Insulin Human Regular ACHS SC 10/05/24 17:00 10/06/24 06:44 2 UNITS Dextrose 50 ml UD PRN IV 10/05/24 13:00 Cefepime HCl 50 ml @ 12.5 mls/hr DAILY IV 10/06/24 10:00 Famotidine 20 mg QPM PO 10/05/24 18:00 10/05/24 18:00 20 MG Lorazepam 1 mg Q6HP PRN PO 10/05/24 16:30 10/05/24 21:33 1 MG Albuterol 2.5 mg Q6HP PRN NEB 10/05/24 16:30 Ipratropium [place] 0.5 mg Q6HPRN PRN NEB 10/05/24 16:45 Examination: GENERAL:Normal, HEENT:Normal, NECK:Normal, LUNGS:Normal, CVS:Normal, ABDOMEN:Normal, MSK:Normal, SKIN:Normal, NEURO:Normal, :Normal laboratory and microbiology Laboratory Tests 10/06/24 05:38 Test 10/06/24 05:38 Range/Units Serum Glucose 138 H 74-106 mg/dL Problem List/Assessment/Plan Problem List/Assessment/Plan * Restless legs syndrome for which the patient will continue on her home medications. * Obesity. * Hypertension. * Asthma. * Depression. * Hyperlipidemia. * Diabetes Mellitus: ssi * Status post right knee surgery for DJD of the knee for which she will receive physical therapy and pain medications. advance care planning- full code- time spent 18 mins Plan discussed with: Patient My Orders My Orders Orders - HIREN SALDAÑA MD Procedure Category Date Status Time Venlafaxine Xr PHA 10/05/24 In Process (Effexor Xr) 22:00 Oxybutynin Chloride PHA 10/05/24 In Process Tablet (Ditropan Tab 22:00 Metoprolol Tartrate PHA 10/05/24 In Process Tablet (Lopressor Ta 22:00 Glucose Blood PHA 10/05/24 In Process (Accu-Chek Comfort 17:00 Insulin R (Human) PHA 10/05/24 In Process (Insulin R) 17:00 Dextrose 50% Syringe PHA 10/05/24 In Process 13:00 Lorazepam Tablet PHA 10/05/24 In Process (Ativan Tablet) 16:30 Albuterol Medneb PHA 10/05/24 In Process (Ventolin Medneb) 16:30 Med Neb Initial RT 10/05/24 Logged Treatment 16:25 Med Neb Initial RT 10/05/24 Logged Treatment 16:25 Med Baron Sub Treatment RT 10/05/24 Logged 16:25 Ipratropium Medneb PHA 10/05/24 In Process (Atrovent Medneb) 16:45 Discontinue Tele ALBERTA 10/06/24 In Process 10:11 * Night Custodian CONS 10/06/24 Transmitted Consult Transfer Orders XFER 10/06/24 Transmitted 10:11 Date of Service: Oct 06, 2024 Billing Provider: HIREN SALDAÑA MD Common Visit Codes: [id number] INP/OBS CARE(HIGH) Secondary Visit Codes: [id number] CARE PLAN 30 MINUTES HIREN SALDAÑA MD Oct 06, 2024 10:26
[2024-10-06] MEDS: CEFEPIME 1GM/50ML 50 ML IV SCH (10:37)
[2024-10-06] MEDS: PRAMIPEXOLE DIHYDROCHLORIDE MO 0.25 MG TAB PO SCH (10:51)
[2024-10-06] MEDS: HYDROmorphone HCL 2 MG/ML VL/or syr IV PRN (12:53)
[2024-10-06 15:43] LABS: Urine Protein, UAD Negative (Negative)
[2024-10-07] VITALS (13 sets, daily range): BP systolic 110–144; BP diastolic 69–90; PULSE 71–107; RESP 16–18; TEMP 97.1–100; O2SAT 88–98
[2024-10-07 08:13] LABS: Hematocrit 35.6 % (36.0-46.0); Hemoglobin 12.0 g/dL (12.2-16.2)
--- NOTE | 2024-10-07 09:55 | DVHDS2 ---
Discharge Summary Date of Admission Oct 05, 2024 at 09:55 Date of Discharge: Oct 07, 2024 Labs/Diagnostic Data: Laboratory Results Test 10/07/24 06:52 10/07/24 05:40 10/06/24 11:25 10/06/24 05:38 Hemoglobin 12.0 g/dL (12.2-16.2) Hematocrit 35.6 % (36.0-46.0) POC Glucose 174 mg/dl (70-106) Urine Color Colorless (Yellow) Urine Clarity Clear (Clear) Urine pH 5.5 (5.0-9.0) Urine Specific [place] 1.005 (1.001-1.035) Urine Protein Negative (Negative) Urine Ketones Negative (Negative) Urine Blood Negative /uL (Negative) Urine Nitrite Negative (Negative) Urine Bilirubin Negative (Negative) Urine Urobilinogen Normal mg/dL (Negative) Urine Leukocyte Esterase Negative /uL (Negative) Urine RBC None seen /hpf (0 - 4) Urine Microscopic WBC 1 /HPF (0-5) Urine Squamous Epithelial Cells Few /hpf (<5) Urine Bacteria Few /hpf (None Seen) Urine Glucose Normal mg/dL (Normal) White Blood Count 9.3 10^3/uL (4.4-10.8) Red Blood Count 3.85 10^6/uL (4.0-5.20) Mean Corpuscular Volume 89.9 fL (80.0-100.0) Mean Corpuscular Hemoglobin 30.6 pg (28.0-32.0) Mean Corpuscular Hemoglobin Concent 34.0 g/dL (32.0-36.0) Red Cell Distribution Width 15.3 % (11.8-14.3) Platelet Count 180 10^3/uL (140-450) Mean Platelet Volume 8.5 fL (6.9-10.8) Neutrophils (%) (Auto) 68.3 % (37.0-80.0) Lymphocytes (%) (Auto) 23.6 % (10.0-50.0) Monocytes (%) (Auto) 7.9 % (0.0-12.0) Eosinophils (%) (Auto) 0.0 % (0.0-7.0) Basophils (%) (Auto) 0.2 % (0.0-2.0) Neutrophils # (Auto) 6.4 10 ^3/uL (1.6-8.6) Lymphocytes # (Auto) 2.2 10 ^3/uL (0.4-5.4) Monocytes # (Auto) 0.7 10 ^3/uL (0-1.3) Eosinophils # (Auto) 0 10 ^3/uL (0-0.8) Basophils # (Auto) 0 10 ^3/uL (0-0.2) Nucleated Red Blood Cells 0.0 % Sodium Level 140 mmol/L (136-145) Potassium Level 4.5 mmol/L (3.5-5.1) Chloride Level 104 mmol/L (98-107) Carbon Dioxide Level 27 mmol/L (20-31) Anion Gap 9 (5-15) Blood Urea Nitrogen 15 mg/dL (9-23) Creatinine 0.94 mg/dL (0.550-1.02) Glomerular Filtration Rate Calc 69 mL/min (>90) BUN/Creatinine Ratio 16.0 (10.0-20.0) Serum Glucose 138 mg/dL (74-106) Hemoglobin A1c 5.8 % A1C (<5.7) Calcium Level 9.3 mg/dL (8.7-10.4) Total Bilirubin 0.4 mg/dL (0.2-1.0) Aspartate Amino Transferase (AST) 17 U/L (13-40) Alanine Aminotransferase (ALT) 10 U/L (7-40) Alkaline Phosphatase 100 U/L (46-116) Total Protein 5.8 g/dL (5.7-8.2) Albumin 4.0 g/dL (3.2-4.8) Other Laboratory Tests 10/07/24 06:52 10/06/24 05:38 Brief Hx & Hospital Course: SEE DICTATED NOTE Condition at Discharge: Good Final Diagnosis/Problems List Right knee osteoarthritis Discharge Disposition: Longterm Facility Discharge Instruct/Medications Diet: Cardiac 2g Na,low cholest Activity: No Restrictions, As Tolerated Follow Up/Referral: FU WITH PCP/ORTHO Medications: PER APR Scheduled Acyclovir (Zovirax Tablet), 1 TAB PO DAILY, (Reported) Atorvastatin Calcium (Atorvastatin Calcium), 1 TAB PO DAILY, (Reported) Diclofenac Epolamine (Flector), 1 PATCH TOP BID, (Reported) Estradiol (Estrace), 1 TAB PO DAILY, (Reported) Famotidine (Pepcid Tablet), 1 TAB PO QPM, (Reported) Gabapentin (Gabapentin), 1 TAB PO BID, (Reported) Galcanezumab-Gnlm (Emgality), 100 MG SC once monthly, (Reported) Glycopyrrolate (Glycopyrrolate), 4 MG IJ BID, (Reported) Hydroxyzine Hcl (Hydroxyzine Hcl), 1 TAB PO BID, (Reported) Lamotrigine (Lamictal), 1 TAB PO BID, (Reported) Loratadine (Claritin), 1 TAB PO DAILY, (Reported) Metoprolol Tartrate (Metoprolol Tartrate), 1 TAB PO BID, (Reported) Mometasone Furoate-Formoterol (Dulera), 2 PUFF INH BID, (Reported) Montelukast Sodium (Montelukast Sodium), 1 TAB PO DAILY, (Reported) Oxybutynin Chloride (Oxybutynin Chloride), 10 MG PO DAILY, (Reported) Pantoprazole Sodium Sesquihydr (Protonix), 40 MG PO QAM, (Reported) Pramipexole Dihydrochloride (Pramipexole Dihydrochlori), 0.5 MG PO DAILY, (Reported) Progesterone Micronized (Progesterone), 2.5 MG PO DAILY, (Reported) Semaglutide (Wegovy), 2.4 MG SC QWEEKLY, (Reported) Trazodone Hcl (Trazodone Hcl), 100 MG PO PRN, (Reported) Venlafaxine Hcl (Venlafaxine Hcl Er), 1 TAB PO DAILY, (Reported) Miscellaneous Medications Acetaminophen (Tylenol), 325 MG PO, (Reported) Hpsrldo-Puvatwtierejr-Robfesvy (Excedrin Extra Strength), 1 GEL PO, (Reported) Naproxen Sodium (Aleve), 220 MG PO, (Reported) Discharge Statement: "Patient was advised to return to the ER or call 911 if any headaches, dizziness, shortness of breath, chest pain, abdominal pain, bleeding, fevers, or worsening of medical condition. Patient was counseled about treatment plan, medications, possible side effects, patientverbalized understanding. All questions were answered to the best of my ability. This discharge took greater then 30 minutes in planning, reviewing documentation, counseling the patient, and discussing with other team members." ASSESSMENT ASSESSMENT Assessment Right knee osteoarthritis Date of Service: Oct 07, 2024 Billing Provider: HIREN SALDAÑA MD Common Visit Codes: [id number] DISCH DAY >30min HIREN SALDAÑA MD Oct 07, 2024 09:55
--- NOTE | 2024-10-07 10:08 | DVHDS ---
DATE OF DISCHARGE: 10/07/2024 The patient is a 64-year-old lady who was admitted after she underwent surgery on the right knee for DJD of the knee. The patient has history of restless legs syndrome, asthma, depression, and hypertension. HOSPITAL COURSE: The patient did well post surgery. Hemoglobin at the time of discharge is 12. Her A1c is 5.8. The patient will now be discharged for rehab to [facility] with medications as per med reconciliation. FINAL DIAGNOSES: * Restless legs syndrome. * Obesity. * Hypertension. * Asthma. * Depression. * Diabetes mellitus. * Hyperlipidemia. * Status post right knee surgery for DJD of the knee. Time spent in discharge planning and review of plan with the patient and nursing was 38 minutes. MD ADRIÁN Noe/ZEINA TID: [id number] RECEIPT: [id number]
[2024-10-08] VITALS (10 sets, daily range): BP systolic 109–153; BP diastolic 72–92; PULSE 81–111; RESP 16–20; TEMP 97.8–98.9; O2SAT 91–98
[2024-10-08 08:29] LABS: Hematocrit 35.4 % (36.0-46.0); Hemoglobin 11.8 g/dL (12.2-16.2)
--- NOTE | 2024-10-08 09:53 | DVHPN2 ---
Progress Note Date Seen: Oct 08, 2024 Medical Necessity Reason Pt with a Central, PICC or Fol: No Subjective Patient reports: No new complaints Review of Systems: HEENT:Normal, CVS:Normal, RESPIRATORY:Normal, GI:Normal, :Normal, MSK:Normal, NEURO:Normal Objective vital signs Vital Sign Date Time Temp Pulse Resp B/P (MAP) Pulse Ox O2 Delivery O2 Flow Rate FiO2 10/08/24 09:04 89 107/73 10/08/24 08:00 97.9 18 97 97.9 10/07/24 23:35 Nasal Cannula 2.0 10/07/24 23:35 28 Total Intake and Output 10/07/24 10/07/24 10/08/24 15:00 23:00 07:00 Intake Total 680 ml 1680 ml Balance 680 ml 1680 ml medications Current Medications Medications Dose Ordered Sig/Mercy Route Start Time Stop Time Status Last Admin Dose Admin Loratadine 10 mg DAILY PO 10/05/24 10:00 10/08/24 09:03 10 MG Montelukast Sodium 10 mg DAILY PO 10/05/24 10:00 10/08/24 09:01 10 MG Patient Own Medication 1 tab DAILY PO 10/05/24 10:00 UNV Patient Own Medication 1 tab BID PO 10/05/24 10:00 UNV Patient Own Medication 1 tab BID PO 10/05/24 10:00 UNV Patient Own Medication 1 tab BID PO 10/05/24 10:00 UNV Patient Own Medication 1 tab BID PO 10/05/24 10:00 UNV Patient Own Medication 0.5 mg DAILY PO 10/05/24 10:00 UNV Patient Own Medication 100 mg PRN PO 10/05/24 10:00 UNV Sodium Chloride 10 ml Q8HR IV 10/05/24 14:00 10/08/24 06:15 10 ML Oxycodone/ Acetaminophen 1 tab Q4HP PRN PO 10/05/24 10:00 10/08/24 03:12 1 TAB Hydromorphone HCl 1 mg Q2HP PRN IV 10/05/24 10:00 10/07/24 16:09 1 MG Docusate Sodium 100 mg Q12HR PO 10/05/24 10:00 10/08/24 09:05 100 MG Nitroglycerin 0.4 mg Q5MINP PRN SL 10/05/24 10:00 Morphine Sulfate 2 mg Q30M PRN IV 10/05/24 10:00 Aspirin 81 mg BID PO 10/05/24 10:00 10/08/24 09:04 81 MG Atorvastatin Calcium 40 mg HS PO 10/05/24 22:00 10/07/24 21:49 40 MG Gabapentin 600 mg BID PO 10/05/24 22:00 10/08/24 09:00 600 MG Hydroxyzine Pamoate 25 mg BID PO 10/05/24 22:00 10/08/24 09:06 25 MG Lamotrigine 200 mg BID PO 10/05/24 22:00 10/08/24 09:03 200 MG Pramipexole Dihydrochloride 0.5 mg DAILY PO 10/06/24 10:00 10/08/24 09:02 0.5 MG Trazodone HCl 100 mg QPM PRN PO 10/05/24 11:30 Diphenhydramine HCl 25 mg Q4HP PRN IV 10/05/24 12:00 Ondansetron HCl 4 mg Q4HP PRN IV 10/05/24 12:00 10/06/24 18:04 4 MG Cyclobenzaprine HCl 5 mg TID PO 10/05/24 14:00 10/07/24 21:49 5 MG Venlafaxine HCl 37.5 mg BID PO 10/05/24 22:00 10/08/24 09:01 37.5 MG Oxybutynin Chloride 5 mg Q12HR PO 10/05/24 22:00 10/08/24 09:04 5 MG Metoprolol Tartrate 25 mg BID PO 10/05/24 22:00 10/08/24 09:04 25 MG Diagnostic Test (Pha) 1 strip ACHS 10/05/24 17:00 10/08/24 06:16 1 STRIP Insulin Human Regular ACHS SC 10/05/24 17:00 10/07/24 11:45 2 UNITS Dextrose 50 ml UD PRN IV 10/05/24 13:00 Cefepime HCl 50 ml @ 12.5 mls/hr DAILY IV 10/06/24 10:00 10/08/24 09:00 12.5 MLS/HR Famotidine 20 mg QPM PO 10/05/24 18:00 10/07/24 18:06 20 MG Lorazepam 1 mg Q6HP PRN PO 10/05/24 16:30 10/07/24 08:43 1 MG Albuterol 2.5 mg Q6HP PRN NEB 10/05/24 16:30 Ipratropium [place] 0.5 mg Q6HPRN PRN NEB 10/05/24 16:45 Examination: GENERAL:Normal, HEENT:Normal, NECK:Normal, LUNGS:Normal, CVS:Normal, ABDOMEN:Normal, MSK:Normal, MSK:Abnormal (right knee dressing), SKIN:Normal, NEURO:Normal, :Normal laboratory and microbiology Laboratory Tests 10/08/24 06:22 10/06/24 05:38 Test 10/06/24 05:38 Range/Units Serum Glucose 138 H 74-106 mg/dL Problem List/Assessment/Plan Problem List/Assessment/Plan * Restless legs syndrome for which the patient will continue on her home medications. * Obesity. * Hypertension. * Asthma. * Depression. * Hyperlipidemia. * Diabetes Mellitus: ssi * Status post right knee surgery for DJD of the knee for which she will receive physical therapy and pain medications. dc planning to snf advance care planning- full code- time spent 18 mins Plan discussed with: Patient My Orders My Orders Orders - HIREN SALDAÑA MD Procedure Category Date Status Time Discharge DISCHARGE 10/07/24 Transmitted 09:53 * Flexo Press Operator CONS 10/07/24 Transmitted Consult Date of Service: Oct 08, 2024 Billing Provider: HIREN SALDAÑA MD Common Visit Codes: [id number] INP/OBS CARE(HIGH) HIREN SALDAÑA MD Oct 08, 2024 09:53
[2024-10-09 01:00] VITALS: BP 102/70; PULSE 138; RESP 19; TEMP 99.9; O2SAT 93
[2024-10-09 05:00] VITALS: BP 121/77; PULSE 105; RESP 20; TEMP 97.8; O2SAT 98
[2024-10-09 07:12] VITALS: O2SAT 92
[2024-10-09 08:59] VITALS: BP 110/68; PULSE 91; RESP 18; TEMP 98.3; O2SAT 92
--- NOTE | 2024-10-09 11:57 | DVHPN2 ---
Subjective The patient is seen and examined at bedside. No complaint today. Waiting for [facility] home facility placement. Hopefully patient can go today when bed available. Reviewed: Care Plan, H&P, Labs, Medications, Previous Orders, Radiology Changes from previous H/P or p: No Changes Objective Vitals Vital Signs Date Time Temp Pulse Resp B/P (MAP) Pulse Ox O2 Delivery O2 Flow Rate FiO2 10/09/24 08:59 98.3 91 18 110/68 (82) 92 98.3 10/09/24 08:00 Nasal Cannula* 4 36 Intake/Output Intake and Output 10/09/24 07:00 Intake Total 1320 ml Balance 1320 ml Intake Oral 1320 ml # Voids 8 General Appearance: Alert, Cooperative, No acute distress HEENT: Atraumatic, PERRLA, Mucous membr. moist/pink Neck: Supple Lungs: Clear to auscultation, Normal air movement Cardiovascular: Regular rate, Normal S1, Normal S2, No murmurs, Gallops, Rubs Abdomen: Normal bowel sounds, Soft, No tenderness, No hepatospenomegaly Neuro: Cranial nerves 3-12 NL Psych/Mental Status: Mental status NL Medications Current Medications Medications Dose Ordered Sig/Mercy Route Start Time Stop Time Status Last Admin Dose Admin Loratadine 10 mg DAILY PO 10/05/24 10:00 10/09/24 09:42 10 MG Montelukast Sodium 10 mg DAILY PO 10/05/24 10:00 10/09/24 09:42 10 MG Patient Own Medication 1 tab DAILY PO 10/05/24 10:00 UNV Patient Own Medication 1 tab BID PO 10/05/24 10:00 UNV Patient Own Medication 1 tab BID PO 10/05/24 10:00 UNV Patient Own Medication 1 tab BID PO 10/05/24 10:00 UNV Patient Own Medication 1 tab BID PO 10/05/24 10:00 UNV Patient Own Medication 0.5 mg DAILY PO 10/05/24 10:00 UNV Patient Own Medication 100 mg PRN PO 10/05/24 10:00 UNV Sodium Chloride 10 ml Q8HR IV 10/05/24 14:00 10/09/24 06:11 10 ML Oxycodone/ Acetaminophen 1 tab Q4HP PRN PO 10/05/24 10:00 10/09/24 11:09 1 TAB Hydromorphone HCl 1 mg Q2HP PRN IV 10/05/24 10:00 10/08/24 22:05 1 MG Docusate Sodium 100 mg Q12HR PO 10/05/24 10:00 10/09/24 09:38 100 MG Nitroglycerin 0.4 mg Q5MINP PRN SL 10/05/24 10:00 Morphine Sulfate 2 mg Q30M PRN IV 10/05/24 10:00 Aspirin 81 mg BID PO 10/05/24 10:00 10/09/24 09:42 81 MG Atorvastatin Calcium 40 mg HS PO 10/05/24 22:00 10/08/24 22:05 40 MG Gabapentin 600 mg BID PO 10/05/24 22:00 10/09/24 10:00 600 MG Hydroxyzine Pamoate 25 mg BID PO 10/05/24 22:00 10/09/24 09:42 25 MG Lamotrigine 200 mg BID PO 10/05/24 22:00 10/09/24 09:40 200 MG Pramipexole Dihydrochloride 0.5 mg DAILY PO 10/06/24 10:00 10/09/24 09:41 0.5 MG Trazodone HCl 100 mg QPM PRN PO 10/05/24 11:30 Diphenhydramine HCl 25 mg Q4HP PRN IV 10/05/24 12:00 Ondansetron HCl 4 mg Q4HP PRN IV 10/05/24 12:00 10/06/24 18:04 4 MG Cyclobenzaprine HCl 5 mg TID PO 10/05/24 14:00 10/09/24 06:06 5 MG Venlafaxine HCl 37.5 mg BID PO 10/05/24 22:00 10/09/24 09:41 37.5 MG Oxybutynin Chloride 5 mg Q12HR PO 10/05/24 22:00 10/09/24 09:42 5 MG Metoprolol Tartrate 25 mg BID PO 10/05/24 22:00 10/08/24 12:20 25 MG Diagnostic Test (Pha) 1 strip ACHS 10/05/24 17:00 10/09/24 11:27 1 STRIP Insulin Human Regular ACHS SC 10/05/24 17:00 10/09/24 06:11 2 UNITS Dextrose 50 ml UD PRN IV 10/05/24 13:00 Cefepime HCl 50 ml @ 12.5 mls/hr DAILY IV 10/06/24 10:00 10/09/24 09:43 12.5 MLS/HR Famotidine 20 mg QPM PO 10/05/24 18:00 10/08/24 17:51 20 MG Lorazepam 1 mg Q6HP PRN PO 10/05/24 16:30 10/07/24 08:43 1 MG Albuterol 2.5 mg Q6HP PRN NEB 10/05/24 16:30 Ipratropium [place] 0.5 mg Q6HPRN PRN NEB 10/05/24 16:45 Laboratory Results Laboratory Tests 10/06/24 05:38 10/08/24 06:22 Urinalysis Test 10/06/24 11:25 Urine Color Colorless (Yellow) Urine Clarity Clear (Clear) Urine pH 5.5 (5.0-9.0) Urine Specific [place] 1.005 (1.001-1.035) Urine Protein Negative (Negative) Urine Ketones Negative (Negative) Urine Blood Negative /uL (Negative) Urine Nitrite Negative (Negative) Urine Bilirubin Negative (Negative) Urine Urobilinogen Normal mg/dL (Negative) Urine Leukocyte Esterase Negative /uL (Negative) Urine RBC None seen /hpf (0 - 4) Urine Microscopic WBC 1 /HPF (0-5) Urine Squamous Epithelial Cells Few /hpf (<5) Urine Bacteria Few /hpf (None Seen) H Urine Glucose Normal mg/dL (Normal) Labs and/or images reviewed: Labs reviewed by me Assessment/Plan Assessment/Plan * Restless legs syndrome for which the patient will continue on her home medications. * Obesity. * Hypertension. * Asthma. * Depression. * Hyperlipidemia. * Diabetes Mellitus: ssi * Status post right knee surgery for DJD of the knee for which she will receive physical therapy and pain medications. [facility] home facility discharge today. Plan discussed with: Patient Date of Service: Oct 09, 2024 Billing Provider: DONTAE TORRES MD Common Visit Codes: [id number] INP/OBS CARE(HIGH) DONTAE TORRES MD Oct 09, 2024 11:57
== END 2024-10-09 14:02 | DRG 326 ==
LOC: SUR 07:05 → OVERFLOW 09:55 → TELE-CENTR 17:09 → CENTRAL 10-06 22:27
PROVIDERS: ADMIT Internal Medicine; ATTEND Internal Medicine
PROC: 8E0YXBZ Computer Assisted Procedure of Lower Extremity (ICD-10-PCS; 2024-10-05)
PROC: 0SRC0JZ Replacement of Right Knee Joint with Synthetic Substitute, Open Approach (ICD-10-PCS; principal; 2024-10-05 09:45)
DX: M17.11 Unilateral primary osteoarthritis, right knee (principal); E11.9 Type 2 diabetes mellitus without complications; E66.9 Obesity, unspecified; F32.A Depression, unspecified; I10 Essential (primary) hypertension; G25.81 Restless legs syndrome; Z68.36 Body mass index [BMI] 36.0-36.9, adult; J44.89 Other specified chronic obstructive pulmonary disease; E78.5 Hyperlipidemia, unspecified; Z88.2 Allergy status to sulfonamides
CPT/HCPCS: 36415; 73562; 80053; 81001; 82962; 83036; 85014; 85018; 85025; 86850; 86900; 86901; 97110; 97116; 97163; G0378; J0131; J1815; J1885; J2250; J2405; J2704; J3490